=== PATIENT | female | born 1965 | race Caucasian/White ===

== ENCOUNTER 2021-05-22 09:07 | Outpatient (CLI) | payer BC, SELFPAY ==
--- NOTE | ~2021-05-22 | MM_ITS ---
EXAMINATION: MM screening [facility] BI w alice HISTORY: Screening mammogram TECHNIQUE: Craniocaudal and mediolateral oblique 3-D tomosynthesis images were obtained and synthetic 2-D images were generated. CAD analysis was submitted and interpreted. COMPARISON: 07/10/2017, 07/09/2016 bilateral digital screening mammogram examinations BREAST PARENCHYMAL COMPOSITION: The breasts are heterogeneously dense, which may obscure small masses . FINDINGS: There is no evidence of suspicious mass, calcification, or architectural distortion to sugg est malignancy in either breast. There has been no suspicious interval change. IMPRESSION: 1. No mammographic evidence of malignancy. 2. Recommend routine screening mammography in one year. BI-RADS Category 1: Negative Reviewed, dictated and finalized at location A.
== END 2021-05-22 09:08 | disposition home or self-care (01) ==
PROVIDERS: Visit Provider Obstetrics & Gynecology Gynecology
DX: Z12.31 Encounter for screening mammogram for malignant neoplasm of breast (principal)
CPT/HCPCS: 77063; 77067

== ENCOUNTER 2022-06-22 15:33 | Outpatient (CLI) | payer BC, SELFPAY ==
--- NOTE | ~2022-06-22 | DEXA_ITS ---
Bone Density Report Name: KALIE CHEN V Age: 56 Sex: Female Ethnicity: White Date of : 1965 Indication: postmenopausal; screening for osteoporosis; Referring Provider: MYRON RODRIGUEZ Study: Bone densitometry was performed. Exam Date: June 22, 2022 Accession number: [id number] Bone Density: Region BMD T-score Z-score Classification AP Spine(L1-L4) 0.984 -0.6 0.5 Normal Femoral Neck (Left) 0.901 0.5 1.5 Normal Total Hip (Left) 1.050 0.9 1.6 Normal Femoral Neck (Right) 0.860 0.1 1.1 Normal Total Hip (Right) 1.073 1.1 1.7 Normal Total Hip Mean 1.062 1.0 1.7 Normal World Health Organization criteria for BMD impression classify patients as: Normal (T-score at or above -1.0), Osteopenia (T-score between -1.0 and -2.5), or Osteoporosis (T-score at or below -2.5). 10-year Fracture Risk: FRAX not reported because: All T-scores for Spine Total, Hip Total, Femoral Neck at or above -1.0 Clinical Information Provided by Patient: Has used the following medications: Vitamin D Patient maximum height was 66 Menopause Age: 54 Onset of menses at age 16 Number of children 2 Impression: The patient has normal bone mass. Discussion: BONE DENSITY IS ABOVE THE MINIMUM DESIRABLE LEVEL AT ALL SKELETAL SITES TESTED. This patient?s bone mineral density is above the minimum desirable level (T-score -1.0 or better) at all sites measured. The patient should follow a healthful lifestyle (good nutrition with adequate calcium and vitamin D, and appropriate weight-bearing exercise). Follow-Up: Consider repeating this study in 5 years or sooner if there is some new clinical indication. Reported by: CHIDI on 06/22/2022 3:51:00 PM. Reviewed, dictated and finalized at location A. [facility]
== END 2022-06-22 15:34 | disposition home or self-care (01) ==
PROVIDERS: Visit Provider Obstetrics & Gynecology Gynecology
DX: Z78.0 Asymptomatic menopausal state (principal)
CPT/HCPCS: 77080

== ENCOUNTER 2022-07-03 07:53 | Outpatient (CLI) | payer BC, SELFPAY ==
--- NOTE | ~2022-07-03 | MM_ITS ---
EXAMINATION: MM screening [facility] BI w alice HISTORY: Screening mammogram TECHNIQUE: Craniocaudal and mediolateral oblique 3-D tomosynthesis images were obtained and synthetic 2-D images were generated. CAD analysis was submitted and interpreted. COMPARISON: 05/22/2021, 07/10/2017, 07/09/2016 BREAST PARENCHYMAL COMPOSITION: The breasts are heterogeneously dense, which may obscure small masses . FINDINGS: No suspicious mass, calcification, or architectural distortion are identified in either tony ast to suggest malignancy. There has been no suspicious interval change. IMPRESSION: 1. No mammographic evidence of malignancy. 2. Recommend routine screening mammography in one year. BI-RADS Category 1: Negative Reviewed, dictated and finalized at location A. [facility] [employer]
== END 2022-07-03 07:54 | disposition home or self-care (01) ==
LOC: ANHIMG 07:54
PROVIDERS: Visit Provider Obstetrics & Gynecology Gynecology
DX: Z12.31 Encounter for screening mammogram for malignant neoplasm of breast (principal)
CPT/HCPCS: 77063; 77067

== ENCOUNTER → 2022-12-17 08:53 | Outpatient (CLI) | payer BC, SELFPAY ==
--- NOTE | ~2022-12-17 | US_ITS ---
EXAMINATION: US transvaginal DATE: 12/17/2022 09:18 INDICATION: Postmenopausal bleeding. TECHNIQUE: Multiple transvaginal sonographic images of the pelvis were obtained. COMPARISON: ultrasound 04/07/14 FINDINGS: The uterus measures 9.5 x 5.6 x 5.8 cm. There is no free fluid in the pelvis. The endometrial complex measures 9 mm in thickness. The ovaries are not visualized. IMPRESSION: 1. Thickened endometrial complex. The differential diagnosis includes endometrial hyperplasia, polyp, and carcinoma. Biopsy is recommended. Reviewed, dictated and finalized at location A. IMPRESSION: 1. Thickened endometrial complex. The differential diagnosis includes endometri al hyperplasia, polyp, and carcinoma. Biopsy is recommended.
== END ==
PROVIDERS: PCP Obstetrics & Gynecology Gynecology; Visit Provider Obstetrics & Gynecology Gynecology
DX: N95.0 Postmenopausal bleeding (principal)
CPT/HCPCS: 76830

== ENCOUNTER 2023-01-14 00:50 | Day surgery (SDC) | payer BC, SELFPAY ==
[2023-01-07 15:18] VITALS: BMI 27.7
--- NOTE | 2023-01-07 15:22 | PC.NURSE ---
Report to the Outpatient Waiting Room, entrance under the green pavilion located off [facility], at time 0900 on date 01/14/23. Planned Procedure Time: 1100. Time changes happen often and if your time is changed the preop area will call you the afternoon before. - You and your visitor will be asked to self-screen and do not enter if you have any COVID symptoms. - A mask is optional within the hospital at this time. Patients may have clear liquids (water, carbonated beverages, clear teas, apple juice) until 3 hours prior to surgery with a maximum of 20 ounces. - No food from midnight until time of surgery - Infants may have breast milk until 4 hours before surgery, formula 6 hours prior to surgery. - Children will be allowed to drink immediately following surgery. If applicable, please bring a bottle or sippy cup to assist with drinking. Juice, water, soda, and popsicles are readily available. For infants on formula, please bring formula the day of surgery. Pacifiers are allowed. Take the following medications with a SIP of water the morning of surgery: NONE DO NOT STOP ANY OF YOUR OTHER PRESCRIPTION MEDICATIONS PRIOR TO SURGERY ?EXCEPT THE FOLLOWING Medications to discontinue per physician VITAMIN Date to take last dose 01/11/23____ Please no make-up, nail hungarian, hairspray, perfume, deodorant, or body powder the day of surgery. No jewelry (including any body piercings) or valuables the day of surgery, leave them at home. Please take a shower or bath the night before, or the morning of, surgery with an antibacterial soap. Wear comfortable, loose fitting clothing. Children are encouraged to wear pajamas. - Jewelry must be removed prior to entering the operating room. Rings and piercings that are not removed may be cut off. - The hospital will not accept responsibility for valuables. - Please leave all valuables, including medications, at home the day of surgery. If you are going home after surgery, a licensed minibus driver must drive you home. - NO public transportation without another adult if you receive anesthesia. - We recommend that an adult stay with you for 24 hours following discharge. - We also recommend that you do not drive, make important decision, drink alcoholic beverages, or take any drugs that were not prescribed by your health care provider for at least 24 hours after your discharge time. For Pediatric surgeries, we recommend two adults accompany the child home. Follow any additional instructions given to you from your surgeon. If you or anyone in your household have experienced Covid symptoms in the past week, please notify your surgeon or the nurse liaison at the phone number below for possible testing. Telephone instructions given to _PATIENT_and asked if any additional questions and then verbalized understanding. Patient advised to call surgeon office or pre surgery nurse liaison [phone] if any additional questions.
--- NOTE | 2023-01-14 07:40 | WPDHPUPDATE1 ---
History and Physical Update Update Date/Time: 01/14/23 07:40 History and Physical has been reviewed, including an updated exam of the patient. There are NO changes in the patient's condition. Risks, benefits, and alternatives have been discussed and questions answered. Patient agrees to proceed with procedure.
--- NOTE | 2023-01-14 07:40 | PM.HPGS ---
History of Present Illness History of Present Illness Consent: Risks, benefits, and alternatives have been discussed and questions answered. Patient agrees to proceed with procedure. Chief complaint: post menopausal bleeding Narrative: Fabi Israel is a 57 year old female with an episode of postmenopausal bleeding. Patient a pelvic ultrasound which revealed a thickened endometrium at 9mm. It was recommended to proceed with D&C hysteroscopy. Risks of infection, bleeding, perforation, and possible pathology are reviewed. Patient voices understanding and agrees to proceed. Review of Systems Review of Systems: not repeated day of surgery; patient states no changes in status [facility] Past Medical History Medical History (Updated 01/14/23 @ 07:42 by Nallely Daniel MD) Anxiety HLD (hyperlipidemia) HTN (hypertension) (normal spontaneous vaginal delivery) x2 Postmenopausal HRT (hormone replacement therapy) Vitamin D deficiency Family History Family History Father Hypertension Patient's father is in good health Family history of diabetes mellitus in first degree relative Family history of coronary artery disease Mother Hypertension Cerebrovascular accident, Onset Age: 76 Family history of coronary artery disease Patient's mother is Sibling Hypertension Patient's sister is in good health Patient's brother is in good health Family history of coronary artery disease Grandparent Cerebrovascular accident Family history of Alzheimer's disease Family history of malignant neoplasm of esophagus Social History Social History (Updated 11/02/22 @ 08:51 by Immanuel Hinds MD) Smoking status: Never smoker Alcohol intake: current Drinks per week: 4 Substance use: never Living arrangements: with family Meds Home Medications and Allergies Home Medications Medication Instructions Recorded Confirmed Type alprazolam 0.25 mg tablet 0.25 mg PO QHS PRN Anxiety 10/30/22 01/07/23 History atorvastatin 10 mg tablet 10 mg PO DAILY 10/30/22 01/07/23 History cholecalciferol (vitamin D3) 125 125 mcg PO DAILY 10/30/22 01/07/23 History mcg (5,000 unit) capsule estradiol 2 mg (7.5 mcg/24 hour) 1 vag ring vaginal [id number] 10/30/22 01/07/23 History vaginal ring (Estring) losartan 25 mg tablet 25 mg PO DAILY 10/30/22 01/07/23 History Allergies Allergy/AdvReac Type Severity Reaction Status Date / Time No Known Allergies Allergy Unverified 01/07/23 15:15 Exam Const: General: healthy appearing and alert Orientation/consciousness: patient oriented x3 Resp: Effort & Inspection: normal respiratory effort GI: GI Palp: Yes Soft to palpation, No Tenderness to palpation present (GI) and No Palpable mass present : External Female Exam: normal external appearance Speculum Exam - Vagina: normal appearance of the vagina and normal vaginal discharge Speculum Exam - Cervix: normal appearance of the cervix Bimanual exam- vagina & uterus: uterine size normal and consistency normal Bimanual Exam- Adnexa, other: normal adnexae and No adnexal tenderness Neuro: General: patient oriented x3 Assessment and Plan Assessment and plan (1) Post-menopausal bleeding: Code(s): N95.0 - Postmenopausal bleeding Status: Acute Assessment and Plan: plan is to proceed with D&C hysteroscopy
[2023-01-14] MEDS: ACETAMINOPHEN 500 MG TABLET 1000 MG PO (09:19)
[2023-01-14] MEDS: LACTATED RINGERS 1,000 ML 30 ML IV CONT (09:35)
[2023-01-14 09:39] VITALS: BP 134/93; PULSE 76; RESP 16; TEMP 36.6; O2SAT 99
--- NOTE | 2023-01-14 09:44 | WPDANESEPPF ---
Anes - Initial Pre Proc Eval Procedure: Operation Date: 01/14/23 11:00 Proposed Procedures p Hysteroscopy, Dilation and Curettage - Nallely Daniel MD Date/Time: 01/14/23 09:44 Surgeon: Nallely Daniel MD Pre Op Diagnosis: post menopausal bleeding Patient Data Age: 57 Gender: F Height: 1.68 m Weight: 75.8 kg Last Vital Signs Temp 36.6 C 01/14/23 09:39 Pulse 76 01/14/23 09:39 Resp 16 01/14/23 09:39 BP 134/93 H 01/14/23 09:39 Pulse Ox 99 01/14/23 09:39 O2 Del Method Room Air 01/14/23 09:39 Allergies Allergy/AdvReac Type Severity Reaction Status Date / Time No Known Allergies Allergy Unverified 01/14/23 09:18 Home Medications Medication Instructions Recorded Confirmed Type alprazolam 0.25 mg tablet 0.25 mg PO QHS PRN Anxiety 10/30/22 01/07/23 History atorvastatin 10 mg tablet 10 mg PO DAILY 10/30/22 01/07/23 History cholecalciferol (vitamin D3) 125 125 mcg PO DAILY 10/30/22 01/07/23 History mcg (5,000 unit) capsule estradiol 2 mg (7.5 mcg/24 hour) 1 vag ring vaginal [id number] 10/30/22 01/07/23 History vaginal ring (Estring) losartan 25 mg tablet 25 mg PO DAILY 10/30/22 01/07/23 History Patient hx anesthesia problems: none Family hx anesthesia problems: none Results Review: All pre-operative results and documents have been reviewed as part of the pre-operative evaluation. [facility] Past Medical History Medical History Anxiety HLD (hyperlipidemia) HTN (hypertension) (normal spontaneous vaginal delivery) x2 Postmenopausal HRT (hormone replacement therapy) Vitamin D deficiency Family History Family History Father Hypertension Patient's father is in good health Family history of diabetes mellitus in first degree relative Family history of coronary artery disease Mother Hypertension Cerebrovascular accident, Onset Age: 76 Family history of coronary artery disease Patient's mother is Sibling Hypertension Patient's sister is in good health Patient's brother is in good health Family history of coronary artery disease Grandparent Cerebrovascular accident Family history of Alzheimer's disease Family history of malignant neoplasm of esophagus Social History Social History Smoking status: Never smoker Alcohol intake: current Drinks per week: 4 Substance use: never Living arrangements: with family Anes - Eval Final PreProcedure Day of Procedure 01/14/23 09:44 Patient weight: overweight Heart: regular rate and rhythm Lungs: clear to auscultation Airway: Mallampati scale class II Neurological: alert and oriented Last oral intake: >/= 8 hours ASA classification: III Emergent: no Anesthetic plan: proceed Anesthesia type and monitoring: general GIVS and standard monitoring Results Review: All pre-operative results and documents have been reviewed as part of the pre-operative evaluation. Informed Consent: The patient's anesthetic plan and its attendant risks and benefits were discussed with the patient/family/POA. Questions were solicited and answers provided to the satisfaction of the patient/family/POA.
[2023-01-14] MEDS: LIDOCAINE HCL 1% LOCAL INJ 20 ML VIAL 10 ML INFILTRATE (10:34)
--- NOTE | 2023-01-14 10:49 | W.PM.PROC2 ---
Procedure Note - Detailed Date of Procedure 01/14/23 Pre-op Diagnosis post menopausal bleeding Post-op Diagnosis Same Procedure Performed D&C hysteroscopy Surgeon Nallely Daniel MD Anesthesia MAC and Local Findings cervix is stenotic; uterus is anteverted and measures 9cm; endometrium appears atrophic with multiple calcifications along the fundus Description of Procedure The patient was taken to the operating room and placed under anesthesia in the dorsal lithotomy position. She was prepped and draped in the usual sterile fashion. [place] speculum was placed in the vagina and cervix grasped on the anterior lip with a tenaculum. The cervix is injected in each quadrant with 1% lidocaine. The uterus was attempted to be sounded and internal cervical stenosis is noted at 3cm. The os Finders are used to open the internal cervix. The uterus is then able to be sounded to 9cm and is noted to be anteverted. The hysteroscope was placed with the above-stated findings. The hysteroscope was then removed. The small sharp curette is used to curette the endometrium until a good uterine cry was noted in all areas. Attention was paid to the anterior fundus.Minimal material was obtained consistent with the atrophic appearance. All instruments are removed. Sponge, needle, and instrument counts are correct per the OR staff. Patient was awakened from anesthesia and taken to recovery in stable condition. Estimated Blood Loss 5 Drains No Packing No Pathology Yes ( Endometrial curettings) Complications No immediate complications Condition Stable Disposition PACU
[2023-01-14 10:50] VITALS: BP 104/58; PULSE 69; RESP 12; O2SAT 100
[2023-01-14 11:20] VITALS: BP 131/83; PULSE 57; RESP 12; O2SAT 100
[2023-01-14 11:50] VITALS: BP 132/74; PULSE 57; RESP 12
== END 2023-01-14 12:00 | disposition home or self-care (01) ==
PROVIDERS: PCP Family Medicine; Visit Provider Obstetrics & Gynecology Gynecology
PROC: 0U5B8ZZ Destruction of Endometrium, Via Natural or Artificial Opening Endoscopic (ICD-10-PCS; CPT 58563; principal; 2023-01-14 11:00)
DX: N95.0 Postmenopausal bleeding (principal); I10 Essential (primary) hypertension; E78.5 Hyperlipidemia, unspecified; E55.9 Vitamin D deficiency, unspecified; F41.9 Anxiety disorder, unspecified; Z79.890 Hormone replacement therapy
CPT/HCPCS: 58558; 88305; A9270; J2250; J2405; J2704; J3010; J7120

== ENCOUNTER 2023-10-02 13:31 | Outpatient (CLI) | payer BC, SELFPAY ==
--- NOTE | ~2023-10-02 | MM_ITS ---
EXAMINATION: MM screening estef[facility] BI w alice HISTORY: Screening TECHNIQUE: Craniocaudal and mediolateral oblique 3-D tomosynthesis images were obtained and synthetic 2-D images were generated. CAD analysis was submitted and interpreted. COMPARISON: Comparison to multiple prior studies sequentially, with oldest reviewed study dated 10/2013. BREAST PARENCHYMAL COMPOSITION: Dense: The breasts are heterogeneously dense, which may obscure small masses FINDINGS: There is no evidence of suspicious mass, calcification, or architectural distortion to sugg est malignancy in either breast. There has been no suspicious interval change. IMPRESSION: 1. No mammographic evidence of malignancy. 2. Recommend routine screening mammography in one year. BI-RADS Category 1: Negative Reviewed, dictated and finalized at location A. [employer] DIRECT[employer]
== END 2023-10-02 13:32 | disposition home or self-care (01) ==
LOC: ANHIMG 13:32
PROVIDERS: PCP Family Medicine; Visit Provider Obstetrics & Gynecology Gynecology
DX: Z12.31 Encounter for screening mammogram for malignant neoplasm of breast (principal)
CPT/HCPCS: 77063; 77067

== ENCOUNTER 2024-10-06 08:52 | Outpatient (CLI) | payer BC, SELFPAY | END 2024-10-06 08:53 | disposition home or self-care (01) | PROVIDERS: PCP Family Medicine; Visit Provider Obstetrics & Gynecology Gynecology | DX: Z12.31 Encounter for screening mammogram for malignant neoplasm of breast (principal) | CPT/HCPCS: 77063; 77067 ==